=== PATIENT | female | born 1970 | race Asian ===

== ENCOUNTER 2018-08-31 09:53 | Emergency (ER) | payer OTHER ==
[2018-08-31 11:58] LABS: BILIRUBIN,URINE NEGATIVE (NEGATIVE); GLUCOSE, URINE (UA) NEGATIVE (NEGATIVE); KETONES,URINE (UA) NEGATIVE (NEGATIVE); LEUKOCYTE ESTERASE, URINE NEGATIVE (NEGATIVE); NITRITE,URINE NEGATIVE (NEGATIVE); OCCULT BLOOD,URINE MODERATE (NEGATIVE); PH,URINE 5.5 PH (5.0-7.5); PROTEIN,URINE NEGATIVE (NEGATIVE); UROBILINOGEN,URINE 0.2 (NORMAL) E.U./dL (NORMAL)
[2018-08-31 12:02] LABS: CLARITY,URINE CLEAR (CLEAR); HCG UR QUAL NEGATIVE
[2018-08-31 12:19] LABS: BACTERIA,URINE None Seen /HPF (None Seen); SQUAMOUS EPITHELIAL CELL,UR RARE Squamous (<= Few)
--- NOTE | 2018-08-31 12:50 | ED Physician Documentation ---
PD HPI ABD PAIN - Stated complaint Stated Complaint: BACK/SIDE PX - Chief complaint Chief Complaint: Abd Pain - History obtained from History obtained from: Patient, Family - History of Present Illness Timing - onset: Today (In 2013 she had bilateral nephrolithiasis requiring shockwave lithotripsy. Since then has not had any trouble with renal colic but over the last couple of days has had mild spasm-like pain of the left kidney and today was more constant but not associated with nausea. She declines pain medication and initial evaluation. She denies gross hematuria. No urinary complaints.) Review of Systems Constitutional: denies: Fever, Chills Cardiac: denies: Chest pain / pressure, Palpitations Respiratory: denies: Dyspnea, Cough GI: denies: Abdominal Pain, Nausea, Vomiting PD PAST MEDICAL HISTORY - Past Medical History Cardiovascular: Hypertension : Kidney stones - Past Surgical History Past Surgical History: Yes - Present Medications Home Medications: Ambulatory Orders Medication Instructions Recorded Confirmed Atenolol 50 mg PO DAILY 11/25/13 02/01/14 Tamsulosin [Flomax] 0.4 mg PO DAILY #14 capsule 08/31/18 - Allergies Allergies/Adverse Reactions: Allergies Allergy/AdvReac Type Severity Reaction Status Date / Time No Known Drug Allergies Allergy Verified 08/31/18 10:44 - Social History Does the pt smoke?: No Smoking Status: Never smoker Does the pt drink ETOH?: No Does the pt have substance abuse?: No - Immunizations Immunizations are current?: Yes - POLST Patient has POLST: No PD ED PE NORMAL - Vitals Vital signs reviewed: Yes - General General: Alert and oriented X 3, No acute distress - Respiratory Respiratory: No respiratory distress, Clear bilaterally - Abdomen Abdomen: Soft, Non tender - Extremities Extremities: No edema, No calf tenderness / cord - Neuro Neuro: Alert and oriented X 3, Normal speech Results - Vitals Vitals: Vital Signs - 24 hr 08/31/18 10:43 Temperature 36.4 C L Heart Rate 74 Respiratory 18 Rate Blood Pressure 149/79 H O2 Saturation 100 Oxygen O2 Source Room air - Labs Labs: Laboratory Tests 08/31/18 10:55 Urine Color YELLOW Urine Clarity CLEAR Urine pH 5.5 Ur Specific [place] 1.020 Urine Protein NEGATIVE Urine Glucose (UA) NEGATIVE Urine Ketones NEGATIVE Urine Occult Blood MODERATE H Urine Nitrite NEGATIVE Urine Bilirubin NEGATIVE Urine Urobilinogen 0.2 (NORMAL) Ur Leukocyte Esterase NEGATIVE Urine RBC 6-10 H Urine WBC 0-3 Ur Squamous Epith Cells RARE Squamous Urine Bacteria None Seen Ur Microscopic Review INDICATED Urine Culture Comments NOT INDICATED Urine HCG, Qual NEGATIVE - Rads (name of study) CT KUB Radiology: EMP read contemporaneously (4.5 mm proximal ureteral calculus, cholelithiasis and fibroid uterus) PD MEDICAL DECISION MAKING - ED course ED course: 47-year-old woman with remote history of renal colic presents with symptoms likely due to same and found to have a 4-1/2 mm proximal left ureteral calculus and other incidental findings were discussed with her. She declined presc ription pain medication and will follow up with her urologist. Given a copy of the CAT scan on CD to aid with this. Departure - Departure Disposition: 01 Home, Self Care Clinical Impression: Renal colic Condition: Good Record reviewed to determine appropriate education?: Yes Instructions: ED Stone Renal W Colic Prescriptions: Tamsulosin [Flomax] 0.4 mg PO DAILY #14 capsule Comments: Drink lots of fluids. You can take ibuprofen as needed for pain. Return for new or worsening symptoms. Follow-up with your urologist as discussed with the copy of the CAT scan. Forms: Activity restrictions
--- NOTE | 2018-08-31 13:43 | CT Report ---
Reason: L flank pain Procedure Date: 08/31/2018 Accession Number: [id number] / [id number] Procedure: CT - Abdomen/Pelvis WO CPT Code: FULL RESULT: EXAM: CT ABDOMEN AND PELVIS (CT KUB) EXAM DATE: 08/31/2018 01:19 PM. CLINICAL HISTORY: Left flank pain. COMPARISONS: ABDOMEN/PELVIS W/ 02/04/2014 1:50 PM. TECHNIQUE: Routine axial helical CT imaging was performed through the abdomen and pelvis without IV contrast. Reconstructions: Coronal and sagittal. In accordance with CT protocol optimization, one or more of the following dose reduction techniques were utilized for this exam: automated exposure control, adjustment of mA and/or KV based on patient size, or use of iterative reconstructive technique. FINDINGS: Lung Bases: Unremarkable. Right Kidney/Ureter: No stones, hydronephrosis, or hydroureter. No perinephric fat stranding. Left Kidney/Ureter: Proximal 4.5 mm left ureteral calculus with mild surrounding hydroureter and minimal upstream hydronephrosis without significant fat stranding around the kidney. Other Solid Organs: Noncontrast images of the solid organs are grossly unremarkable. Gallbladder/Bile Ducts: Cholelithiasis without evidence of cholecystitis. Peritoneal Cavity: No free fluid, free air or skyler adenopathy. Bowel is grossly unremarkable. Pelvic Organs: No bladder stones or wall thickening. Noncontrast images of the visualized pelvic organs are unremarkable. Vasculature: Unremarkable. Other: None. IMPRESSION: 4.5 mm proximal left ureteral calculus. Cholelithiasis without cholecystitis. RADIA The call report notification system was initiated by Dr. Clinton Killian at 01:42 PM on 08/31/2018. CRITICAL RESULT: The findings were discussed with Dr. Carr on 08/31/2018 at 1:45 PM.
[2018-08-31 14:00] VITALS: BP 138/74
== END 2018-08-31 13:57 | disposition home or self-care (01) ==
LOC: ED 09:53
DX: N20.0 Calculus of kidney (principal); Z87.442 Personal history of urinary calculi; I10 Essential (primary) hypertension
CPT/HCPCS: 74176; 81001; 81003; 81025; 87086; 99283; 99284

== ENCOUNTER 2021-01-03 08:13 | Outpatient (CLI) | payer OTHER ==
--- NOTE | 2021-01-03 11:14 | XRAY Report ---
PROCEDURE: Abdomen 1 View X-Ray INDICATIONS: KIDNEY STONES TECHNIQUE: 1 view of the abdomen were acquired. COMPARISON: None FINDINGS: Surgical changes and devices: None. Bowel: No pneumoperitoneum. The bowel gas pattern is normal. Soft tissues: No masses; visualized solid organ contours appear normal in size. No suspicious abdom inal calcifications. Bones: No suspicious bony abnormalities. IMPRESSION: No calcifications suspicious for nephroureterolithiasis.. Reviewed by: Reza Enriquez on 01/03/2021 11:13 AM PDT Approved by: Reza Enriquez on 01/03/2021 11:13 AM PDT Station ID: [id number]
== END 2021-01-03 08:14 | disposition home or self-care (01) ==
LOC: DI 08:13
PROVIDERS: ATTEND Urology
DX: N20.0 Calculus of kidney (principal)

== ENCOUNTER 2023-10-21 09:33 | Emergency (ER) | payer OTHER ==
[2023-10-21 10:50] LABS: BILIRUBIN,URINE NEGATIVE (NEGATIVE); GLUCOSE, URINE (UA) NEGATIVE (NEGATIVE); KETONES,URINE (UA) NEGATIVE (NEGATIVE); LEUKOCYTE ESTERASE, URINE SMALL (NEGATIVE); NITRITE,URINE POSITIVE (NEGATIVE); OCCULT BLOOD,URINE MODERATE (NEGATIVE); PROTEIN,URINE 30 mg/dL (NEGATIVE); UROBILINOGEN,URINE 0.2 (NORMAL) E.U./dL (NORMAL)
[2023-10-21 10:53] LABS: CLARITY,URINE SL. CLOUDY (CLEAR); HCG UR QUAL NEGATIVE
[2023-10-21 10:57] LABS: BACTERIA,URINE Few /HPF (None Seen); SQUAMOUS EPITHELIAL CELL,UR MOD Squamous (<= Few); WBC,URINE >25 /HPF (0-5)
[2023-10-21] MEDS: SODIUM CHLORIDE 0.9% 1,000 ML IV STA (10:57)
[2023-10-21] MEDS: KETOROLAC 15 MG/ML VIAL IVP STA (11:00)
[2023-10-21 11:06] LABS: BASOPHILS % (AUTO) 0.1 %; HCT - HEMATOCRIT 43.3 % (37.0-47.0); HGB - HEMOGLOBIN 14.2 g/dL (12.0-16.0); LYMPHOCYTES # (AUTO) 0.6 10^3/uL (1.5-3.5); MEAN CORPUSCULAR HEMOGLOBIN 30.3 pg (27.0-31.0); MEAN CORPUSCULAR HGB CONC 32.8 g/dL (32.0-36.0); MEAN CORPUSCULAR VOLUME 92.5 fL (81.0-99.0); MEAN PLATELET VOLUME 9.1 fL (7.9-10.8); MONOCYTES # (AUTO) 0.6 10^3/uL (0.0-1.0); MONOCYTES % (AUTO) 7.2 %; NEUTROPHILS # (AUTO) 7.5 10^3/uL (1.5-6.6); NEUTROPHILS % (AUTO) 85.4 %; PLT - PLATELET COUNT 205 10^3/uL (130-450); RED BLOOD COUNT 4.68 10^6/uL (4.20-5.40); RED CELL DISTRIBUTION WIDTH 12.6 % (12.0-15.0); WHITE BLOOD COUNT 8.8 x10^3/uL (4.8-10.8)
[2023-10-21 11:22] LABS: ALBUMIN 4.2 g/dL (3.2-5.5); ALBUMIN/GLOBULIN RATIO 1.2 (1.0-2.2); BILIRUBIN,TOTAL 0.7 mg/dL (0.2-1.0); CALCIUM 9.6 mg/dL (8.5-10.3); CREATININE 0.6 mg/dL (0.6-1.3); POTASSIUM 3.8 mmol/L (3.5-4.5); TOTAL PROTEIN 7.6 g/dL (6.4-8.9)
[2023-10-21] MEDS: cefTRIAXone 1 GM in SODIUM CHLORIDE 0.9% MINIBAG 100 ML IV STA (11:22)
[2023-10-21 12:00] LABS: B. PARAPERTUSSIS- RESP PCR PAN NOT DETECTED; B. PERTUSSIS- RESP PCR PANEL NOT DETECTED; C. PNEUMONIAE- RESP PCR PANEL NOT DETECTED; CORONAVIRUS 229E-RESP PCR NOT DETECTED; CORONAVIRUS HKU1-RESP PCR NOT DETECTED; CORONAVIRUS NL63-RESP PCR NOT DETECTED; CORONAVIRUS OC43-RESP PCR NOT DETECTED; HUMAN METAPNEUMOVIRUS NOT DETECTED; INFLUENZA A- RESP PCR PANEL NOT DETECTED; INFLUENZA B - RESP PCR PANEL NOT DETECTED; M. PNEUMONIAE- RESP PCR PANEL NOT DETECTED; PARAINFLUENZA VIRUS 1 NOT DETECTED; PARAINFLUENZA VIRUS 2 NOT DETECTED; PARAINFLUENZA VIRUS 3 NOT DETECTED; PARAINFLUENZA VIRUS 4 NOT DETECTED; RHINOVIRUS/ENTEROVIRUS NOT DETECTED; RSV- RESP PCR PANEL NOT DETECTED; SARS-CoV-2 -RESP PCR PANEL NOT DETECTED
--- NOTE | 2023-10-21 12:23 | ED Physician Documentation ---
PD HPI ABD PAIN - Stated complaint Stated Complaint: BACK PX,ABD PX,FEVER - Chief complaint Chief Complaint: Abd Pain - History obtained from History obtained from: Patient - Additional information Additional information: Patient is a 52-year-old female with no significant past medical history presenting for evaluation of lower abdominal and back pain starting on Friday. Friday she reported developing fevers. She last used acetaminophen around 130 this morning. She does report some heavy feeling with urination. She does work at the [employer] and has reported a recent cough. No sore throat. No chest pain, trouble breathing.No vomiting or diarrhea. Review of Systems Constitutional: reports: Fever Cardiac: denies: Chest pain / pressure Respiratory: denies: Dyspnea GI: reports: Abdominal Pain. 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: No Does the pt have substance abuse?: No - Immunizations Immunizations are current?: Yes - POLST Patient has POLST: No PD ED PE NORMAL - General General: Alert and oriented X 3, No acute distress, Well developed/nourished - HEENT HEENT: Atraumatic - Neck Neck: Supple, no meningeal sign - Cardiac Cardiac: RRR, Strong equal pulses - Respiratory Respiratory: No respiratory distress, Clear bilaterally - Abdomen Abdomen: Normal bowel sounds, Soft, Non tender, Non distended - Back Back: No CVA TTP - Derm Derm: Warm and dry - Neuro Neuro: Normal speech Results - Vitals Vitals: Vital Signs - 24 hr 10/21/23 10/21/23 10/21/23 09:48 11:53 12:54 Temperature 38.3 C H Heart Rate 100 89 82 Respiratory 15 18 18 Rate Blood Pressure 172/79 H 136/86 H 130/82 H O2 Saturation 100 96 98 Oxygen O2 Source Room air - Labs Labs: Laboratory Tests 10/21/23 10/21/23 10/21/23 10:42 11:00 11:00 WBC 8.8 RBC 4.68 Hgb 14.2 Hct 43.3 MCV 92.5 MCH 30.3 MCHC 32.8 RDW 12.6 Plt Count 205 MPV 9.1 Neut # (Auto) 7.5 H Lymph # (Auto) 0.6 L [place] # (Auto) 0.6 Eos # (Auto) 0.0 Baso # (Auto) 0.0 Absolute Nucleated RBC 0.00 Nucleated RBC % 0.0 Sodium 133 L Potassium 3.8 Chloride 101 Carbon Dioxide 24 Anion Gap 8.0 BUN 11 Creatinine 0.6 Estimated GFR (MDRD) 105 Glucose 122 H Calcium 9.6 Total Bilirubin 0.7 AST 27 ALT 31 Alkaline Phosphatase 52 Total Protein 7.6 Albumin 4.2 Globulin 3.4 Albumin/Globulin Ratio 1.2 Lipase 17 Urine Color YELLOW Urine Clarity SL. CLOUDY Urine pH 6.0 Ur Specific [place] 1.025 Urine Protein 30 H Urine Glucose (UA) NEGATIVE Urine Ketones NEGATIVE Urine Occult Blood MODERATE H Urine Nitrite POSITIVE H Urine Bilirubin NEGATIVE Urine Urobilinogen 0.2 (NORMAL) Ur Leukocyte Esterase SMALL H Urine RBC 6-10 H Urine WBC >25 H Ur Squamous Epith Cells MOD Squamous H Urine Bacteria Few Ur Microscopic Review INDICATED Urine Culture Comments NOT INDICATED Urine HCG, Qual NEGATIVE Nasal Adenovirus (PCR) Nasal B. parapertussis DNA (PCR) Nasal Coronavir 229E PCR Nasal Coronavir HKU1 PCR Nasal Coronavir NL63 PCR Nasal Coronavir OC43 PCR Nasal Enterovir/Rhinovir PCR Nasal Influenza B PCR Nasal Influenza A PCR Nasal Parainfluen 1 PCR Nasal Parainfluen 2 PCR Nasal Parainfluen 3 PCR Nasal Parainfluen 4 PCR Nasal RSV (PCR) Nasal B.pertussis DNA PCR Nasal C.pneumoniae (PCR) Luke Human Metapneumo PCR Nasal M.pneumoniae (PCR) Nasal SARS-CoV-2 (PCR) 10/21/23 11:00 WBC RBC Hgb Hct MCV MCH MCHC RDW Plt Count MPV Neut # (Auto) Lymph # (Auto) [place] # (Auto) Eos # (Auto) Baso # (Auto) Absolute Nucleated RBC Nucleated RBC % Sodium Potassium Chloride Carbon Dioxide Anion Gap BUN Creatinine Estimated GFR (MDRD) Glucose Calcium Total Bilirubin AST ALT Alkaline Phosphatase Total Protein Albumin Globulin Albumin/Globulin Ratio Lipase Urine Color Urine Clarity Urine pH Ur Specific [place] Urine Protein Urine Glucose (UA) Urine Ketones Urine Occult Blood Urine Nitrite Urine Bilirubin Urine Urobilinogen Ur Leukocyte Esterase Urine RBC Urine WBC Ur Squamous Epith Cells Urine Bacteria Ur Microscopic Review Urine Culture Comments Urine HCG, Qual Nasal Adenovirus (PCR) NOT DETECTED Nasal B. parapertussis DNA (PCR) NOT DETECTED Nasal Coronavir 229E PCR NOT DETECTED Nasal Coronavir HKU1 PCR NOT DETECTED Nasal Coronavir NL63 PCR NOT DETECTED Nasal Coronavir OC43 PCR NOT DETECTED Nasal Enterovir/Rhinovir PCR NOT DETECTED Nasal Influenza B PCR NOT DETECTED Nasal Influenza A PCR NOT DETECTED Nasal Parainfluen 1 PCR NOT DETECTED Nasal Parainfluen 2 PCR NOT DETECTED Nasal Parainfluen 3 PCR NOT DETECTED Nasal Parainfluen 4 PCR NOT DETECTED Nasal RSV (PCR) NOT DETECTED Nasal B.pertussis DNA PCR NOT DETECTED Nasal C.pneumoniae (PCR) NOT DETECTED Luke Human Metapneumo PCR NOT DETECTED Nasal M.pneumoniae (PCR) NOT DETECTED Nasal SARS-CoV-2 (PCR) NOT DETECTED PD Medical Decision Making - ED course Complexity details: reviewed results, re-evaluated patient, d/w patient ED course: Patient is a 52-year-old female presenting for evaluation of fever, generalized abdominal discomfort. Has low-grade fever here. Otherwise vital signs are stable. CBC, chemistry, urinalysis reviewed. Urine is concerning for infection. Patient received IV fluids, Toradol and is feeling better. Respiratory swab is negative. She was started on Rocephin. Repeat abdominal exam remains benign. Will start on antibiotics for pyelonephritis. No symptoms to suggest kidney stone.Patient counseled on treatment plan as well as concerning symptoms to return for. 1222 - Patient is feeling better, no abdominal pain. Departure - Departure Disposition: 01 Home, Self Care Clinical Impression: Pyelonephritis Condition: Stable Instructions: ED Kidney Infec Female Prescriptions: Cefpodoxime Proxetil [Vantin] 100 mg PO Q12H #14 tablet Comments: Your testing today shows that you have a kidney infection. I sent a prescription for antibiotics to [facility] in [place]. Please make sure you complete the course of the antibiotic. Your respiratory swab is negative for tested viruses such as COVID, flu and RSV. Continue with acetaminophen or ibuprofen as needed for fever or pain. Return to the ER if you develop any worsening symptoms such as increased pain. Forms: PCP List, Activity restrictions Discharge Date/Time: 10/21/23 12:56
[2023-10-21 12:59] VITALS: BP 130/82; O2SAT 98
== END 2023-10-21 12:56 | disposition home or self-care (01) ==
LOC: ED 09:33
DX: N12 Tubulo-interstitial nephritis, not specified as acute or chronic (principal); I10 Essential (primary) hypertension
CPT/HCPCS: 36415; 80053; 81001; 81003; 81025; 83690; 85025; 87086; 87633; 96365; 96375; 99283

== ENCOUNTER 2023-10-22 18:32 | Outpatient (CLI) | payer OTHER | END 2023-10-22 23:59 | disposition critical access hospital (66) | LOC: EMS 18:32 | DX: R11.0 Nausea (principal); R50.9 Fever, unspecified; R00.0 Tachycardia, unspecified; R42 Dizziness and giddiness; R06.4 Hyperventilation; R10.2 Pelvic and perineal pain | CPT/HCPCS: A0425; A0427 ==

== ENCOUNTER 2023-10-22 18:51 | Inpatient (IN) | payer OTHER ==
[2023-10-22] MEDS: SODIUM CHLORIDE 0.9% 1,000 ML IV STA (19:27)
--- NOTE | 2023-10-22 19:28 | ED Physician Documentation ---
History of Present Illness - Stated complaint Stated Complaint: NAUSEA, CHILLS, FEVER - Chief complaint Chief Complaint: General - History obtained from History obtained from: Patient - Additonal information Additional information: Patient is a 52-year-old female presenting for evaluation of ongoing fever. Patient was seen yesterday with fever and reported heaviness with urination. Labs were reassuring but urine suggested infection and she was given a dose of IV Rocephin. She is feeling better after Toradol and fluids with benign abdominal exam so imaging was deferred. She has been taking her antibiotic and has been using acetaminophen every 6 hours, 1000 mg. However she continues to have fevers and is concerned about that. Reports having some discomfort now in the left flank.No cough or congestion. No vomiting but does have some nausea. Review of Systems Constitutional: reports: Fever, Chills Cardiac: denies: Chest pain / pressure Respiratory: denies: Dyspnea GI: reports: Nausea. 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 : Kidney stones HEENT: None Psych: None Musculoskeletal: None Derm: None - Past Surgical History Past Surgical History: Yes - Present Medications Home Medications: Ambulatory Orders Medication Instructions Recorded Confirmed atenoloL [Atenolol] 50 mg PO DAILY 11/25/13 10/22/23 Cefpodoxime Proxetil [Vantin] 100 mg PO Q12H #14 tablet 10/21/23 10/22/23 - Allergies Allergies/Adverse Reactions: Allergies Allergy/AdvReac Type Severity Reaction Status Date / Time lisinopril Allergy Respiratory Verified 10/22/23 18:55 - Social History Does the pt smoke?: No Smoking Status: Never smoker Does the pt drink ETOH?: No Does the pt have substance abuse?: No - Immunizations Immunizations are current?: Yes - POLST Patient has POLST: No PD ED PE NORMAL - General General: Alert and oriented X 3, No acute distress, Well developed/nourished - HEENT HEENT: Atraumatic, Moist mucous membranes, Pharynx benign - Neck Neck: Supple, no meningeal sign - Cardiac Cardiac: Strong equal pulses, Other (Tachycardic, regular rhythm) - Respiratory Respiratory: No respiratory distress, Clear bilaterally - Abdomen Abdomen: Normal bowel sounds, Soft, Non tender, Non distended - Back Back: Other (Left CVA tenderness) - Derm Derm: Warm and dry - Neuro Neuro: Normal speech Results - Vitals Vitals: Vital Signs - 24 hr 10/22/23 10/22/23 10/22/23 18:55 21:46 23:35 Temperature 38.6 C H 37.1 C Heart Rate 120 H 109 H 105 H Respiratory 20 18 20 Rate Blood Pressure 150/83 H 145/69 H 113/56 L O2 Saturation 98 99 96 10/23/23 10/23/23 10/23/23 00:47 01:44 03:00 Temperature 36.9 C 36.8 C Heart Rate 97 92 84 Respiratory 20 20 22 Rate Blood Pressure 96/52 L 110/63 124/70 O2 Saturation 95 96 97 10/23/23 10/23/23 05:00 08:02 Temperature 36.8 C 36.6 C Heart Rate 77 86 Respiratory 20 25 H Rate Blood Pressure 143/77 H 177/83 H O2 Saturation 14 L 97 Oxygen O2 Source Room air - Labs Labs: Microbiology 10/22/23 19:57 Blood Culture - Preliminary Blood Blood Culture (PCR) - Final 10/22/23 19:57 Blood Culture - Preliminary Blood Laboratory Tests 10/22/23 10/22/23 10/22/23 19:15 19:57 19:57 WBC 2.5 L RBC 4.39 Hgb 13.2 Hct 41.0 MCV 93.4 MCH 30.1 MCHC 32.2 RDW 12.7 Plt Count 146 MPV 8.8 Neut # (Auto) 2.3 Lymph # (Auto) 0.2 L [place] # (Auto) 0.0 Eos # (Auto) 0.0 Baso # (Auto) 0.0 Absolute Nucleated RBC 0.00 Band Neuts % (Manual) Not Reportable Abnorm Lymph % (Manual) Not Reportable Nucleated RBC % 0.0 Neutrophils # (Manual) Not Reportable Lymphocytes # (Manual) Not Reportable Monocytes # (Manual) Not Reportable Eosinophils # (Manual) Not Reportable Basophils # (Manual) Not Reportable Differential Comment MANUAL=AUTO DIFF Manual Slide Review Indicated Platelet Estimate NORMAL (130-450,000) Platelet Morphology NORMAL APPEARANCE RBC Morph Micro Appear NORMAL APPEARANCE Sodium 136 Potassium 3.4 L Chloride 106 Carbon Dioxide 22 Anion Gap 8.0 BUN 13 Creatinine 0.7 Estimated GFR (MDRD) 88 L Glucose 179 H Lactic Acid Calcium 9.5 Total Bilirubin 0.7 AST 34 ALT 49 Alkaline Phosphatase 73 Total Protein 6.8 Albumin 3.8 Globulin 3.0 Albumin/Globulin Ratio 1.3 Lipase 21 Urine Color DARK YELLOW Urine Clarity CLEAR Urine pH 6.0 Ur Specific [place] 1.025 Urine Protein 100 H Urine Glucose (UA) NEGATIVE Urine Ketones 15 H Urine Occult Blood SMALL H Urine Nitrite NEGATIVE Urine Bilirubin NEGATIVE Urine Urobilinogen 0.2 (NORMAL) Ur Leukocyte Esterase NEGATIVE Urine RBC 11-25 H Urine WBC 11-25 H Urine WBC Clumps PRESENT Ur Squamous Epith Cells FEW Squamous Urine Bacteria Few Ur Microscopic Review INDICATED Urine Culture Comments INDICATED 10/22/23 10/23/23 10/23/23 19:57 05:19 05:19 WBC 10.6 RBC 4.06 L Hgb 12.5 Hct 38.2 MCV 94.1 MCH 30.8 MCHC 32.7 RDW 13.1 Plt Count 147 MPV 9.1 Neut # (Auto) 9.3 H Lymph # (Auto) 0.7 L [place] # (Auto) 0.6 Eos # (Auto) 0.0 Baso # (Auto) 0.0 Absolute Nucleated RBC 0.00 Band Neuts % (Manual) Abnorm Lymph % (Manual) Nucleated RBC % 0.0 Neutrophils # (Manual) Lymphocytes # (Manual) Monocytes # (Manual) Eosinophils # (Manual) Basophils # (Manual) Differential Comment Manual Slide Review Platelet Estimate Platelet Morphology RBC Morph Micro Appear Sodium 139 Potassium 4.1 Chloride 108 Carbon Dioxide 23 Anion Gap 8.0 BUN 11 Creatinine 0.7 Estimated GFR (MDRD) 88 L Glucose 133 H Lactic Acid 1.8 Calcium 8.9 Total Bilirubin AST ALT Alkaline Phosphatase Total Protein Albumin Globulin Albumin/Globulin Ratio Lipase Urine Color Urine Clarity Urine pH Ur Specific [place] Urine Protein Urine Glucose (UA) Urine Ketones Urine Occult Blood Urine Nitrite Urine Bilirubin Urine Urobilinogen Ur Leukocyte Esterase Urine RBC Urine WBC Urine WBC Clumps Ur Squamous Epith Cells Urine Bacteria Ur Microscopic Review Urine Culture Comments PD Medical Decision Making - ED course Complexity details: reviewed results, re-evaluated patient, d/w patient ED course: Patient is a 52-year-old female presenting for reevaluation with a fever and pain in the back. Patient was seen yesterday with similar symptoms and diagnosed with pyelonephritis. As she was feeling better with IV fluids and Toradol imaging was deferred. Patient arrives febrile and tachycardic. She states that the fever is not breaking despite use of acetaminophen every 6 hours of the 1000 mg. She reports not feeling any better despite being on antibiotics. She has nausea but no vomiting. CBC, chemistry, urinalysis were repeated. I also did add on a urine culture from yesterday's urine after speaking to the lab as it did not automatically reflex to this to the presence of squamous epithelial cells. Labs are significant for leukopenia of 2.5. CT scan of the abdomen and pelvis was obtained. There are findings of a right sided pyelonephritis. No signs of hydronephrosis or obstructive uropathy. Patient also does have a large cystic mass on the right ovary. She does not have any lower abdominal tenderness. An ultrasound was also obtained demonstrating a large right ovarian cyst but no signs of torsion. Patient was advised on this finding and is aware she needs follow-up with gynecology.Patient is still tachycardic despite treatment of fever. She has been continued on Rocephin. She has not felt better despite being on antibiotics for the past 24 hours. Therefore feel it would be reasonable to observe her in the hospital for pyelonephritis with continued IV antibiotics. Unfortunately there are no admission beds available so patient remains in the emergency department overnight. 0555 - Patient's blood cultures are positive for gram-negative Bacteria. Patient is aware. Plan remains the same that she should be hospitalized once inpatient beds are available. Pt signed out at shift change awaiting bed availability for admission. Departure - Departure Disposition: [facility] DC/Xfer Clinical Impression: Pyelonephritis, Right ovarian cyst, Gram-negative bacteremia Condition: Good Forms: PCP List
[2023-10-22] MEDS ORDERED: cefTRIAXone 1 GM VIAL ONE (19:36)
[2023-10-22] MEDS: ONDANSETRON 4 MG/2 ML VIAL IVP STA (19:38)
[2023-10-22] MEDS: cefTRIAXone 1 GM in SODIUM CHLORIDE 0.9% MINIBAG 100 ML IV STA (19:38)
[2023-10-22] MEDS: KETOROLAC 15 MG/ML VIAL IVP STA (19:38)
[2023-10-22] MEDS ORDERED: iohexoL-300 100 ML VIAL ONE (19:45)
[2023-10-22 20:05] LABS: BASOPHILS % (AUTO) 0.4 %; HGB - HEMOGLOBIN 13.2 g/dL (12.0-16.0); LYMPHOCYTES # (AUTO) 0.2 10^3/uL (1.5-3.5); LYMPHOCYTES % (AUTO) 7.5 %; MEAN CORPUSCULAR HEMOGLOBIN 30.1 pg (27.0-31.0); MEAN CORPUSCULAR HGB CONC 32.2 g/dL (32.0-36.0); MEAN CORPUSCULAR VOLUME 93.4 fL (81.0-99.0); MEAN PLATELET VOLUME 8.8 fL (7.9-10.8); MONOCYTES % (AUTO) 1.6 %; NEUTROPHILS # (AUTO) 2.3 10^3/uL (1.5-6.6); NEUTROPHILS % (AUTO) 90.1 %; PLT - PLATELET COUNT 146 10^3/uL (130-450); RED BLOOD COUNT 4.39 10^6/uL (4.20-5.40); RED CELL DISTRIBUTION WIDTH 12.7 % (12.0-15.0); WHITE BLOOD COUNT 2.5 x10^3/uL (4.8-10.8)
[2023-10-22 20:10] LABS: BILIRUBIN,URINE NEGATIVE (NEGATIVE); GLUCOSE, URINE (UA) NEGATIVE (NEGATIVE); KETONES,URINE (UA) 15 mg/dL (NEGATIVE); LEUKOCYTE ESTERASE, URINE NEGATIVE (NEGATIVE); NITRITE,URINE NEGATIVE (NEGATIVE); OCCULT BLOOD,URINE SMALL (NEGATIVE); PROTEIN,URINE 100 mg/dL (NEGATIVE); UROBILINOGEN,URINE 0.2 (NORMAL) E.U./dL (NORMAL)
[2023-10-22 20:22] LABS: ALBUMIN 3.8 g/dL (3.2-5.5); ALBUMIN/GLOBULIN RATIO 1.3 (1.0-2.2); BILIRUBIN,TOTAL 0.7 mg/dL (0.2-1.0); CALCIUM 9.5 mg/dL (8.5-10.3); CREATININE 0.7 mg/dL (0.6-1.3); POTASSIUM 3.4 mmol/L (3.5-4.5); TOTAL PROTEIN 6.8 g/dL (6.4-8.9)
[2023-10-22 20:25] LABS: SLIDE REVIEW? Indicated
--- NOTE | 2023-10-22 20:29 | CT Report ---
PROCEDURE: Abdomen/Pelvis W INDICATIONS: L flank pain/fever CONTRAST: 100ml [id number] TECHNIQUE: After the administration of intravenous contrast, a CT scan of the abdomen and pelvis was performed. Images were recorded and evaluated at appropriate window settings. Reformats: coronal and sagittal. F or radiation dose reduction, the following was used: automated exposure control, adjustment of mA and /or kV according to patient size. COMPARISON: CT abdomen pelvis 08/31/2018 FINDINGS: Image quality: Diagnostic. Lower chest: Small hiatal hernia. No pleural effusion. Liver: No solid mass. Gallbladder: No radiopaque stones or wall thickening. Biliary tree: No intrahepatic or extrahepatic dilation, accounting for age. Spleen: No splenomegaly. Pancreas: No pancreatic ductal dilation. Adrenals: No adrenal nodule. Kidneys and ureters: Scattered areas of hypodensity in the right kidney, (). This could be seen i n the setting of pyelonephritis. There is stranding near the right kidney. No hydronephrosis. No defi nite solid renal mass. Stomach, bowel and peritoneum: No gastric or small bowel dilation. No abnormal wall thickening. No pa thologic free fluid. Normal appendix. Lymph nodes: No central or retroperitoneal adenopathy. Vessels: No infrarenal aortic aneurysm. Patent portal vein. PELVIS Reproductive organs: Multiple small uterine fibroids. Uterus is anteverted. Large right ovarian cyst measuring 8.4 x 6.7 x 6.5 cm, ( and ). Small daughter cysts or thin septations. Bladder: Mostly decompressed. No stone. Pelvic lymph nodes: No pelvic adenopathy by size criteria. Bones: No aggressive osseous abnormality. Other: No significant ventral or inguinal hernia. IMPRESSION: 1. Scattered areas of hypodensity in the right kidney. Right perinephric stranding. Findings concerni ng for pyelonephritis. 2. No hydronephrosis. 3. Large right ovarian cyst measuring 8.4 cm. Recommend further evaluation with pelvic ultrasound or MRI. Recommend gynecological consultation. Results were communicated to Dr. Jesus Stanton at 10/22/2023 8:26 PM PDT. Reviewed by: Aiden Stauffer MD on 10/22/2023 8:28 PM PDT Approved by: Aiden Stauffer MD on 10/22/2023 8:28 PM PDT Station ID: [id number]
[2023-10-22 20:33] LABS: CLARITY,URINE CLEAR (CLEAR)
[2023-10-22 20:39] LABS: WBC CLUMPS,URINE PRESENT
[2023-10-22 20:40] LABS: BACTERIA,URINE Few /HPF (None Seen); SQUAMOUS EPITHELIAL CELL,UR FEW Squamous (<= Few)
[2023-10-22] MEDS: iohexoL-300 100 ML VIAL IVP ONE (20:41)
[2023-10-22 20:53] LABS: DIFFERENTIAL COMMENT MANUAL=AUTO DIFF; PLATELET ESTIMATE, MANUAL NORMAL (130-450,000) (NORMAL); PLATELET MORPHOLOGY NORMAL APPEARANCE (NORMAL); RBC MORPHOLOGY (MULTIPLE) NORMAL APPEARANCE (NORMAL)
[2023-10-22] MEDS: POTASSIUM BICARB 25 MEQ TABLET PO ONE (21:28)
[2023-10-22] MEDS ORDERED: ONDANSETRON 4 MG/2 ML VIAL IVP PRN (22:42)
[2023-10-22] MEDS: ACETAMINOPHEN 500 MG TABLET PO PRN (23:40)
--- NOTE | 2023-10-23 00:35 | Ultrasound Report ---
PROCEDURE: Pelvic w/Transvag+Doppler Comp INDICATIONS: R ovarian cyst/mass TECHNIQUE: Real-time scanning was performed of the pelvic organs, with image documentation. Additional endovagi nal scanning was necessary due to incomplete visualization of the adnexal and endometrial structures by transabdominal scanning. Doppler interrogation was performed of the ovaries bilaterally. COMPARISON: CT abdomen pelvis 10/22/2023. FINDINGS: Uterus: Uterus is anteverted and normal in size at 8.6 x 5.8 x 3.5 cm. The myometrium is homogeneou s. The endometrium measures 5 mm in combined thickness. Several uterine fibroids. For example: Mid anterior subserosal fibroid measuring 2.5 cm. Mid posterior intramural fibroid measuring 1.3 cm. Righ t anterior intramural fibroid measuring 1.9 cm. Several calcified fibroids. Ovaries: The right ovary measures 8.6 x 8.1 x 5.8 cm, with a calculated ovarian volume of 211 cc. T he left ovary measures 1.7 x 1.3 x 1.4 cm, with a calculated ovarian volume of 2 cc. Appropriate blo od flow to the ovaries with Doppler interrogation. No findings to suggest ovarian torsion. Less than 12 follicles can be seen in each ovary. Large anechoic right ovarian cyst measuring is 7.4 x 6 x 5.4 cm. There is internal debris. No internal vascularity. (Of note a right ovarian cyst was seen in 201 9 measuring 2.3 cm). Other: No pathologic free abdominal or pelvic fluid. IMPRESSION: 1. Large right anechoic ovarian cyst with internal debris measuring 7.4 cm. No internal vascularity. Gynecological consultation is recommended given its large size. Pelvic MRI may be helpful for further evaluation. 2. Multiple uterine fibroids. Reviewed by: Aiden Stauffer MD on 10/23/2023 12:33 AM PDT Approved by: Aiden Stauffer MD on 10/23/2023 12:33 AM PDT Station ID: [id number]
[2023-10-23] MEDS: SODIUM CHLORIDE 0.9% 1,000 ML IV STA (01:38)
[2023-10-23 05:23] LABS: BASOPHILS % (AUTO) 0.3 %; HCT - HEMATOCRIT 38.2 % (37.0-47.0); HGB - HEMOGLOBIN 12.5 g/dL (12.0-16.0); LYMPHOCYTES # (AUTO) 0.7 10^3/uL (1.5-3.5); LYMPHOCYTES % (AUTO) 6.2 %; MEAN CORPUSCULAR HEMOGLOBIN 30.8 pg (27.0-31.0); MEAN CORPUSCULAR HGB CONC 32.7 g/dL (32.0-36.0); MEAN CORPUSCULAR VOLUME 94.1 fL (81.0-99.0); MEAN PLATELET VOLUME 9.1 fL (7.9-10.8); MONOCYTES # (AUTO) 0.6 10^3/uL (0.0-1.0); MONOCYTES % (AUTO) 5.5 %; NEUTROPHILS # (AUTO) 9.3 10^3/uL (1.5-6.6); NEUTROPHILS % (AUTO) 87.2 %; PLT - PLATELET COUNT 147 10^3/uL (130-450); RED BLOOD COUNT 4.06 10^6/uL (4.20-5.40); RED CELL DISTRIBUTION WIDTH 13.1 % (12.0-15.0); WHITE BLOOD COUNT 10.6 x10^3/uL (4.8-10.8)
[2023-10-23 05:41] LABS: CALCIUM 8.9 mg/dL (8.5-10.3); CREATININE 0.7 mg/dL (0.6-1.3); POTASSIUM 4.1 mmol/L (3.5-4.5)
[2023-10-23] MEDS: PANTOPRAZOLE 40 MG TABLET PO SCH (07:52)
[2023-10-23] MEDS: cefTRIAXone 1 GM in SODIUM CHLORIDE 0.9% MINIBAG 100 ML IV SCH (08:01)
--- NOTE | 2023-10-23 09:18 | PHARMACY PROGRESS NOTE ---
- Best Possible Medication History Admit Date and Time: Processed by: Pharmacy Medication History completed: Yes Patient Interview: Completed Secondary Source(s): Insurance records As the person ultimately responsible for medication therapy, providers are able to order a medication from an existing home medication list in [facility] via the "Reconcile Routine" prior to Confirmation of that medication by home support worker. Such practice is discouraged except when the physician, in their clinical judgment, deems that a medical need exists for a medication without regard to previous use.
[2023-10-23] MEDS: MEROPENEM 1 GM in SODIUM CHLORIDE 0.9% MINIBAG 100 ML IV SCH (11:19)
[2023-10-23] MEDS ORDERED: HYDROcod/ACETAM 5/325 MG TABLET PO PRN (14:11)
[2023-10-23] MEDS ORDERED: ONDANSETRON ODT 4 MG TABLET TL PRN (14:11)
[2023-10-23] MEDS ORDERED: SODIUM CHLORIDE FLUSH 0.9% 10 ML SYRINGE IVP PRN (14:11)
[2023-10-23] MEDS ORDERED: ONDANSETRON 4 MG/2 ML VIAL IVP PRN (14:11)
--- NOTE | 2023-10-23 14:17 | HISTORY & PHYSICAL EXAMINATION ---
Chief Complaint - Chief Complaint Chief Complaint: Fever, chills, discomfort with urination History of Present Illness - Admitted From Admitted From:: ED, came from home - History Obtained From Records Reviewed: Yes History obtained from: ED provider, patietn and Exam Limitations: No - History of Present Illness HPI Comment/Other: A 52-year-old female general healthy presented to ED with cc of ongoing fever, chill and urinary discomfort. Patient came to ED on 10/21/2023 with fever and reported heaviness with urination. Labs were reassuring but urine suggested infection and she was given a dose of IV Rocephin. She is feeling better after Toradol and fluids with benign abdominal exam so imaging was deferred. She has been taking her antibiotic and has been using acetaminophen every 6 hours, 1000 mg. However she continues to have fevers and having some discomfort in the left flank. No cough or congestion. No vomiting but does have some nausea. In the ER, patient had fever T38.6, HR 120, RR 20, Bp 150/83, on room air. Lab significant with WBC 2.5, platelet 146, UA negative nitrite, negative LE. right kidney scatter areas of hypodensity, concerning for pyelonephritis. Large right ovarian cysts 8.4cm. Urine culture positive with E coli. Blood culture collected on 10/22/2023 preliminary report ESBL. Patient was started on ceftrioxne initially, when blood culture preliminary report available, ED provider switched antibiotic to merepeniem History - Past Medical History Cardiovascular: reports: Hypertension Respiratory: reports: None Neuro: reports: None Endocrine/Autoimmune: reports: None GI: reports: None MENTAL HEALTH DIRECTOR: reports: None : reports: Kidney stones HEENT: reports: None Psych: reports: None Musculoskeletal: reports: None Derm: reports: None MRSA Hx?: No - POLST Patient has POLST: No Meds/Allgy - Home Medications Home Medications: Ambulatory Orders Medication Instructions Recorded Confirmed atenoloL [Atenolol] 50 mg PO DAILY 11/25/13 10/22/23 - Allergies Allergies/Adverse Reactions: Allergies Allergy/AdvReac Type Severity Reaction Status Date / Time lisinopril Allergy Respiratory Verified 10/22/23 18:55 Review of Systems - Constitutional Constitutional: reports: Fatigue, Fever, Chills, Malaise - Eyes Eyes: denies: Vision loss, Dipolpia - Ears, Nose & Throat Ears, Nose & Throat: denies: Sore throat, Hoarseness - Cardiovascular Cariovascular: denies: Irregular heart rate, Palpitations, Chest pain - Respiratory Respiratory: denies: Cough, Sputum production, Wheezing - Gastrointestinal Gastrointestinal: reports: Nausea, Poor appetite. denies: Abdominal distention, Constipation - Genitourinary Genitourinary: reports: Other (urination discomfort) - Musculoskeletal Musculoskeletal: denies: Muscle aches, Joint pain - Integumentary Integumentary: denies: Rash, Lesions - Neurological Neurological: reports: General weakness. 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 negative: Guarding, Rebound Back: negative: CVA tenderness (R), CVA tenderness (L) Skin: positive: Color nml, Warm, Dry Extremities: positive: Non-tender, No pedal edema Neurologic/Psychiatric: positive: Oriented x3, CN's nml (2-12) Sepsis Event Note (H) - Evaluation Current Stage of Sepsis: Sepsis Possible source of Sepsis: positive: Genitourinary Conclusion/Plan - Problem List (1) Sepsis Conclusion/Plan: Febrile, tachycardia, Low WBC, meet SIRS criteria, she has positive blood culture, likely ESBL Source of infection: pyelonephritis -was given ceftrioxone initially, switched to meropenem -continue with antibiotic -iv fluid -prn symptom treatment for fever and nausea Qualifiers: Sepsis type: Escherichia coli Sepsis acute organ dysfunction status: without acute organ dysfunction Qualified Code(s): A41.51 - Sepsis due to Escherichia coli [E. coli] (2) Gram-negative bacteremia Conclusion/Plan: Blood culture preliminary report: ESBL await for full report (3) Right ovarian cyst Conclusion/Plan: large, 7-8cm outpatient MENTAL HEALTH DIRECTOR follow up (4) Pyelonephritis Conclusion/Plan: CT abdomen has evidence of right pyelonephritis -on antibiotic (5) HTN (hypertension) Conclusion/Plan: accelated Bp, 140/90, likely related to stress -resume home med: atolol - Lab Results Lab results reviewed: Yes Fish Bones: 10/23/23 05:19 10/23/23 05:19 - Diagnostic Imaging Results Diagnostic Imaging Results: positive: Final report reviewed - EKG Results EKG Comparison: No prior EKG
--- NOTE | 2023-10-23 14:32 | ED Physician Documentation ---
ED Addendum - Addendum Addendum: 10/23/23 14:30 The patient was signed out to me at change of shift, pending admission to the hospital for pyelonephritis and gram-negative bacteremia after having failed outpatient treatment for UTI. I did speak with Dr. Swift as I was informed that we had beds available and Dr. Swift, our on-call hospitalist did see and evaluate the patient. She stated she would admit the patient to the hospital as soon as a bed has become officially available after discharges from the floor. The patient is agreeable to this plan. The patient was stable though antibiotics were changed from Rocephin to meropenem, based on the preliminary identification of the bacteria in the patient's blood. Her white blood cell count has come up to 10 from 2. Her vital signs have been stable. Final impression 1. Gram-negative bacteremia 2. Pyelonephritis Disposition: Admit to medical service in serious but stable condition.
[2023-10-23] MEDS: ACETAMINOPHEN 325 MG TABLET PO PRN (14:56)
[2023-10-23] MEDS: SODIUM CHLORIDE FLUSH 0.9% 10 ML SYRINGE IVP SCH (16:44)
[2023-10-23] MEDS: SODIUM CHLORIDE 0.9% 1,000 ML IV SCH (16:44)
[2023-10-24 05:19] LABS: BASOPHILS % (AUTO) 0.4 %; EOSINOPHILS % (AUTO) 0.4 %; HCT - HEMATOCRIT 34.6 % (37.0-47.0); HGB - HEMOGLOBIN 11.2 g/dL (12.0-16.0); LYMPHOCYTES # (AUTO) 1.1 10^3/uL (1.5-3.5); MEAN CORPUSCULAR HEMOGLOBIN 30.4 pg (27.0-31.0); MEAN CORPUSCULAR HGB CONC 32.4 g/dL (32.0-36.0); MEAN PLATELET VOLUME 8.7 fL (7.9-10.8); MONOCYTES # (AUTO) 0.9 10^3/uL (0.0-1.0); MONOCYTES % (AUTO) 11.3 %; NEUTROPHILS # (AUTO) 5.6 10^3/uL (1.5-6.6); NEUTROPHILS % (AUTO) 72.9 %; PLT - PLATELET COUNT 158 10^3/uL (130-450); RED BLOOD COUNT 3.68 10^6/uL (4.20-5.40); RED CELL DISTRIBUTION WIDTH 13.1 % (12.0-15.0); WHITE BLOOD COUNT 7.6 x10^3/uL (4.8-10.8)
[2023-10-24 05:46] LABS: CALCIUM 8.5 mg/dL (8.5-10.3); CREATININE 0.6 mg/dL (0.6-1.3); POTASSIUM 3.4 mmol/L (3.5-4.5)
--- NOTE | 2023-10-24 07:53 | PROVIDER PROGRESS NOTE ---
Assessment/Plan - Problem List (1) Sepsis Qualifiers: Sepsis type: Escherichia coli Sepsis acute organ dysfunction status: without acute organ dysfunction Qualified Code(s): A41.51 - Sepsis due to Escherichia coli [E. coli] Assessment/Plan: Sepsis, resolved VSS, WBC normalized -continue with iv Meropenem (2) Gram-negative bacteremia Assessment/Plan: ESBL bacteremia -iv meropenem, total treatment course 7 days, can consider to switch to oral after 5 days iv antibiotic (3) Right ovarian cyst Assessment/Plan: chronic condition, follow up with CASH PROCESSOR as outpatient (4) Pyelonephritis Assessment/Plan: On Meropenem (5) HTN (hypertension) Qualifiers: Hypertension type: primary hypertension Qualified Code(s): I10 - Essential (primary) hypertension Assessment/Plan: Uncontrolled -Continue home atenolol -add amlodipin - Current Meds Current Meds: Current Medications Generic Name Dose Route Start Last Admin Trade Name Freq PRN Reason Stop Dose Admin Acetaminophen 650 mg 10/23/23 14:11 10/23/23 23:49 Acetaminophen 325 Mg Tablet PO 650 mg Q4HR PRN Administration Pain 1 to 4, or Fever Meropenem 1 gm/ Sodium 100 mls @ 200 mls/hr 10/23/23 11:00 10/24/23 03:07 Chloride IV Infused Q8H DARLYN Infusion Sodium Chloride 1,000 mls @ 83.333 mls/hr 10/23/23 16:00 10/24/23 04:39 Normal Saline 0.9% IV 83.333 mls/hr .Q12H DARLYN Administration Pantoprazole Sodium 40 mg 10/23/23 07:00 10/24/23 06:33 Pantoprazole 40 Mg Tablet PO 40 mg QDAC DARLYN Administration Sodium Chloride 10 ml 10/23/23 17:00 10/24/23 00:17 Sodium Chloride Flush 0.9% 10 Ml Syringe IVP Not Given 0100,0900,1700 DARLYN - Lab Result Lab results reviewed: Yes Fish Bone Diagrams: 10/24/23 05:07 10/24/23 05:07 - Additional Planning Condition/Complexity: Improved My Orders: My Active Orders 10/23/23 14:11 Activity Orders [RC] Q2HR IO [RC] IOSHIFT Initiate Bowel Care Protocol [RC] .protocol Initiate Line Care Protocol [RC] QSHIFT Initiate Personal Care Protoco [RC] .protocol Oxygen Therapy [RC] .PRN Vital Signs [RC] 0800,1600,0000 Acetaminophen [Tylenol] 650 mg PO Q4HR PRN HYDROcod/ACETAM 5/325 [[place] 5/325] 1 tab PO Q4HR PRN Ondansetron Inj [Zofran Inj] 4 mg IVP Q6HR PRN Ondansetron Odt [Zofran Odt] 4 mg TL Q6HR PRN Sodium Chloride Flush 0.9% [Normal Saline Flush 0.9%] 10 ml IVP PRN PRN Code Status [OTHERS] Routine Condition of Patient [OTHERS] Routine DVT Prophylaxis [OTHERS] Routine 10/23/23 16:00 Sodium Chloride 0.9% [Normal Saline 0.9%] 1,000 ml IV 83.333 mls/hr 10/23/23 Dinner Regular Diet [DIET] 10/23/23 17:00 Sodium Chloride Flush 0.9% [Normal Saline Flush 0.9%] 10 ml IVP 0100,0900,1700 10/24/23 07:51 Isolation [Infection Precautions] [RC] QSHIFT 10/24/23 09:00 Enoxaparin [Lovenox] 40 mg SUBQ DAILY Potassium Chloride [K-Dur] 20 meq PO BID atenoloL [Tenormin] 50 mg PO DAILY 10/25/23 05:00 BMP - BASIC METABOLIC PANEL [CHEM] DAILYLAB CBC [CBC - COMP BLD CT W/AUTO DIFF] [HEME] DAILYLAB 10/26/23 05:00 BMP - BASIC METABOLIC PANEL [CHEM] DAILYLAB CBC [CBC - COMP BLD CT W/AUTO DIFF] [HEME] DAILYLAB 10/27/23 05:00 BMP - BASIC METABOLIC PANEL [CHEM] DAILYLAB CBC [CBC - COMP BLD CT W/AUTO DIFF] [HEME] DAILYLAB 10/28/23 05:00 BMP - BASIC METABOLIC PANEL [CHEM] DAILYLAB CBC [CBC - COMP BLD CT W/AUTO DIFF] [HEME] DAILYLAB Plan Discussed with:: Patient, Spouse Time Spent: 15-30 minutes Subjective - Subjective Patient Reports: Feeling Better (one episode of chill, no fever, has mild pelvic heavyness) Objective Vital Signs: Vital Signs - 24 hr 10/23/23 10/23/23 10/23/23 08:02 10:04 12:00 Temperature 36.6 C Heart Rate 86 85 81 Heart Rate [ Brachial] Respiratory 25 H 18 Rate Blood Pressure 177/83 H 163/73 H 132/74 H Blood Pressure [Left Brachial artery] Blood Pressure [Right Brachial artery] O2 Saturation 97 93 99 10/23/23 10/23/23 10/23/23 14:00 15:02 16:40 Temperature 37.2 C 37.0 C Heart Rate 84 Heart Rate [ 80 92 Brachial] Respiratory 16 16 20 Rate Blood Pressure 151/69 H Blood Pressure 148/85 H [Left Brachial artery] Blood Pressure 120/71 [Right Brachial artery] O2 Saturation 100 99 97 10/23/23 10/24/23 10/24/23 23:51 00:19 07:37 Temperature 37.9 C 37.2 C 37 C Heart Rate Heart Rate [ 113 H 95 Brachial] Respiratory 18 18 Rate Blood Pressure Blood Pressure [Left Brachial artery] Blood Pressure 152/87 H 162/87 H [Right Brachial artery] O2 Saturation 94 95 Oxygen O2 Source Room air I&O (Last 24 Hrs): Intake and Output Totals x24h 10/22/23 10/23/23 10/24/23 23:59 23:59 23:59 Intake Total 1100 1920 1048.608 Balance 1100 1920 1048.608 General: Alert, Oriented x3 HEENT: PERRLA Neck: No JVD Neuro: Alert Cardiovascular: Regular rate Respiratory: No respiratory distress Abdomen: Soft, No tenderness Extremities: No clubbing, No edema - Results Results: Laboratory Results WBC 7.6 x10^3/uL (4.8-10.8) 10/24/23 05:07 RBC 3.68 10^6/uL (4.20-5.40) L 10/24/23 05:07 Hgb 11.2 g/dL (12.0-16.0) L 10/24/23 05:07 Hct 34.6 % (37.0-47.0) L 10/24/23 05:07 MCV 94.0 fL (81.0-99.0) 10/24/23 05:07 MCH 30.4 pg (27.0-31.0) 10/24/23 05:07 MCHC 32.4 g/dL (32.0-36.0) 10/24/23 05:07 RDW 13.1 % (12.0-15.0) 10/24/23 05:07 Plt Count 158 10^3/uL (130-450) 10/24/23 05:07 MPV 8.7 fL (7.9-10.8) 10/24/23 05:07 Neut # (Auto) 5.6 10^3/uL (1.5-6.6) 10/24/23 05:07 Lymph # (Auto) 1.1 10^3/uL (1.5-3.5) L 10/24/23 05:07 [place] # (Auto) 0.9 10^3/uL (0.0-1.0) 10/24/23 05:07 Eos # (Auto) 0.0 10^3/uL (0.0-0.7) 10/24/23 05:07 Baso # (Auto) 0.0 10^3/uL (0.0-0.1) 10/24/23 05:07 Absolute Nucleated RBC 0.00 x10^3/uL 10/24/23 05:07 Band Neuts % (Manual) Not Reportable 10/22/23 19:57 Abnorm Lymph % (Manual) Not Reportable 10/22/23 19:57 Nucleated RBC % 0.0 /100WBC 10/24/23 05:07 Neutrophils # (Manual) Not Reportable 10/22/23 19:57 Lymphocytes # (Manual) Not Reportable 10/22/23 19:57 Monocytes # (Manual) Not Reportable 10/22/23 19:57 Eosinophils # (Manual) Not Reportable 10/22/23 19:57 Basophils # (Manual) Not Reportable 10/22/23 19:57 Differential Comment MANUAL=AUTO DIFF 10/22/23 19:57 Manual Slide Review Indicated 10/22/23 19:57 Platelet Estimate NORMAL (130-450,000) (NORMAL) 10/22/23 19:57 Platelet Morphology NORMAL APPEARANCE (NORMAL) 10/22/23 19:57 RBC Morph Micro Appear NORMAL APPEARANCE (NORMAL) 10/22/23 19:57 Sodium 139 mmol/L (135-145) 10/24/23 05:07 Potassium 3.4 mmol/L (3.5-4.5) L 10/24/23 05:07 Chloride 109 mmol/L (101-111) 10/24/23 05:07 Carbon Dioxide 23 mmol/L (21-32) 10/24/23 05:07 Anion Gap 7.0 (6-13) 10/24/23 05:07 BUN 9 mg/dL (6-20) 10/24/23 05:07 Creatinine 0.6 mg/dL (0.6-1.3) 10/24/23 05:07 Estimated GFR (MDRD) 105 (>89) 10/24/23 05:07 Glucose 103 mg/dL (74-104) 10/24/23 05:07 Lactic Acid 1.8 mmol/L (0.5-2.2) 10/22/23 19:57 Calcium 8.5 mg/dL (8.5-10.3) 10/24/23 05:07 Total Bilirubin 0.7 mg/dL (0.2-1.0) 10/22/23 19:57 AST 34 IU/L (10-42) 10/22/23 19:57 ALT 49 IU/L (10-60) 10/22/23 19:57 Alkaline Phosphatase 73 IU/L (42-121) 10/22/23 19:57 Total Protein 6.8 g/dL (6.4-8.9) 10/22/23 19:57 Albumin 3.8 g/dL (3.2-5.5) 10/22/23 19:57 Globulin 3.0 g/dL (2.1-4.2) 10/22/23 19:57 Albumin/Globulin Ratio 1.3 (1.0-2.2) 10/22/23 19:57 Lipase 21 U/L (11-82) 10/22/23 19:57 Urine Color DARK YELLOW 10/22/23 19:15 Urine Clarity CLEAR (CLEAR) 10/22/23 19:15 Urine pH 6.0 PH (5.0-7.5) 10/22/23 19:15 Ur Specific [place] 1.025 (1.002-1.030) 10/22/23 19:15 Urine Protein 100 mg/dL (NEGATIVE) H 10/22/23 19:15 Urine Glucose (UA) NEGATIVE mg/dL (NEGATIVE) 10/22/23 19:15 Urine Ketones 15 mg/dL (NEGATIVE) H 10/22/23 19:15 Urine Occult Blood SMALL (NEGATIVE) H 10/22/23 19:15 Urine Nitrite NEGATIVE (NEGATIVE) 10/22/23 19:15 Urine Bilirubin NEGATIVE (NEGATIVE) 10/22/23 19:15 Urine Urobilinogen 0.2 (NORMAL) E.U./dL (NORMAL) 10/22/23 19:15 Ur Leukocyte Esterase NEGATIVE (NEGATIVE) 10/22/23 19:15 Urine RBC 11-25 /HPF (0-5) H 10/22/23 19:15 Urine WBC 11-25 /HPF (0-5) H 10/22/23 19:15 Urine WBC Clumps PRESENT 10/22/23 19:15 Ur Squamous Epith Cells FEW Squamous (<= Few) 10/22/23 19:15 Urine Bacteria Few /HPF (None Seen) 10/22/23 19:15 Ur Microscopic Review INDICATED 10/22/23 19:15 Urine Culture Comments INDICATED 10/22/23 19:15 Sepsis Event Note (H) - Evaluation Current Stage of Sepsis: Resolved Possible source of Sepsis: positive: Genitourinary ABX Reporting Has patient been on IV antibiotics over the past 48 hours?: Yes
[2023-10-24] MEDS: atenoloL 25 MG TABLET PO SCH (09:14)
[2023-10-24] MEDS: POTASSIUM CHLORIDE 20 MEQ TABLET PO SCH (09:14)
[2023-10-24] MEDS: ENOXAPARIN 40 MG/0.4 ML SYRINGE SUBQ SCH (09:15)
[2023-10-24] MEDS ORDERED: SODIUM CHLORIDE 0.9% MINIBAG 100 ML IV ONE (11:15)
[2023-10-24] MEDS ORDERED: hydrALAZINE INJ 20 MG/ML VIAL IVP PRN (11:26)
[2023-10-24] MEDS: amLODIPine 5 MG TABLET PO SCH (11:35)
[2023-10-25 05:43] LABS: BASOPHILS % (AUTO) 0.6 %; EOSINOPHILS # (AUTO) 0.1 10^3/uL (0.0-0.7); EOSINOPHILS % (AUTO) 1.1 %; HCT - HEMATOCRIT 37.3 % (37.0-47.0); HGB - HEMOGLOBIN 11.9 g/dL (12.0-16.0); LYMPHOCYTES # (AUTO) 1.3 10^3/uL (1.5-3.5); LYMPHOCYTES % (AUTO) 24.6 %; MEAN CORPUSCULAR HEMOGLOBIN 29.8 pg (27.0-31.0); MEAN CORPUSCULAR HGB CONC 31.9 g/dL (32.0-36.0); MEAN CORPUSCULAR VOLUME 93.5 fL (81.0-99.0); MEAN PLATELET VOLUME 8.6 fL (7.9-10.8); MONOCYTES # (AUTO) 0.8 10^3/uL (0.0-1.0); NEUTROPHILS # (AUTO) 3.1 10^3/uL (1.5-6.6); NEUTROPHILS % (AUTO) 57.2 %; PLT - PLATELET COUNT 197 10^3/uL (130-450); RED BLOOD COUNT 3.99 10^6/uL (4.20-5.40); RED CELL DISTRIBUTION WIDTH 12.8 % (12.0-15.0); WHITE BLOOD COUNT 5.4 x10^3/uL (4.8-10.8)
[2023-10-25 05:58] LABS: CALCIUM 9.1 mg/dL (8.5-10.3); CREATININE 0.6 mg/dL (0.6-1.3); POTASSIUM 3.6 mmol/L (3.5-4.5)
--- NOTE | 2023-10-25 13:50 | PROVIDER PROGRESS NOTE ---
Subjective - Prog Note Date Prog Note Date: 10/25/23 Prog Note Time: 13:48 - Subjective Subjective: No acute events overnight. She reports feeling improved today and has very little back/flank pain. She also has been eating and drinking well without any nausea. Remains afebrile though she felt a little warm last night. Denies any dysuria or hematuria. Current Medications - Current Medications Current Medications: Current Medications Generic Name Dose Route Start Last Admin Trade Name Freq PRN Reason Stop Dose Admin Acetaminophen 650 mg 10/23/23 14:11 10/23/23 23:49 Acetaminophen 325 Mg Tablet PO 650 mg Q4HR PRN Administration Pain 1 to 4, or Fever Amlodipine Besylate 10 mg 10/24/23 12:00 10/25/23 08:23 Amlodipine 5 Mg Tablet PO 10 mg DAILY DARLYN Administration Atenolol 50 mg 10/24/23 09:00 10/25/23 08:23 Atenolol 25 Mg Tablet PO 50 mg DAILY DARLYN Administration Enoxaparin Sodium 40 mg 10/24/23 09:00 10/25/23 08:24 Enoxaparin 40 Mg/0.4 Ml Syringe SUBQ Not Given DAILY DARLYN Meropenem 1 gm/ Sodium 100 mls @ 200 mls/hr 10/23/23 11:00 10/25/23 11:21 Chloride IV Infused Q8H DARLYN Infusion Sodium Chloride 1,000 mls @ 83.333 mls/hr 10/23/23 16:00 10/25/23 06:57 Normal Saline 0.9% IV 83.333 mls/hr .Q12H DARLYN Administration Pantoprazole Sodium 40 mg 10/23/23 07:00 10/25/23 06:55 Pantoprazole 40 Mg Tablet PO 40 mg QDAC DARLYN Administration Potassium Chloride 20 meq 10/24/23 09:00 10/25/23 08:24 Potassium Chloride 20 Meq Tablet PO 10/26/23 23:59 20 meq BID DARLYN Administration Sodium Chloride 10 ml 10/23/23 17:00 10/25/23 08:25 Sodium Chloride Flush 0.9% 10 Ml Syringe IVP Not Given 0100,0900,1700 DARLYN Objective - Vital Signs/Intake & Output Reviewed Vital Signs: Yes Vital Signs: Vital Signs x48h Temp Pulse Resp BP Pulse Ox 10/25/23 07:57 36.9 C 96 20 143/89 H 96 Intake & Output: Intake & Output 10/22/23 10/23/23 10/24/23 10/25/23 23:59 23:59 23:59 23:59 Intake Total 1100 1920 3668.608 1800 Balance 1100 1920 3668.608 1800 - Objective General Appearance: positive: No acute distress, Alert Eyes Bilateral: positive: Normal inspection, PERRL, EOMI ENT: positive: ENT inspection nml, Pharynx nml, No signs of dehydration Neck: positive: Nml inspection, Thyroid nml, No JVD Respiratory: positive: No respiratory distress, Breath sounds nml. negative: Wheezes, Rales, Rhonchi Cardiovascular: positive: Regular rate & rhythm, No murmur, No gallop Peripheral Pulses: 2+ Dorsalis pedis (R), 2+ Dorsalis pedis (L) Abdomen: positive: Non-tender, No organomegaly, Nml bowel sounds, No distention Back: positive: Nml inspection. negative: CVA tenderness (R), CVA tenderness (L) Skin: positive: Color nml, No rash, Warm, Dry Extremities: positive: Non-tender, Full ROM, Nml appearance, No pedal edema Neurologic/Psychiatric: positive: Oriented x3, CN's nml (2-12), Motor nml (Blood Cultures x 2 with ESBL E. Coli) - Lab Results Fish Bones: 10/25/23 05:30 10/25/23 05:30 Other Labs: Lab Results x24hrs 10/25/23 10/25/23 Range/Units 05:30 05:30 WBC 5.4 (4.8-10.8) x10^3/uL RBC 3.99 L (4.20-5.40) 10^6/uL Hgb 11.9 L (12.0-16.0) g/dL Hct 37.3 (37.0-47.0) % MCV 93.5 (81.0-99.0) fL MCH 29.8 (27.0-31.0) pg MCHC 31.9 L (32.0-36.0) g/dL RDW 12.8 (12.0-15.0) % Plt Count 197 (130-450) 10^3/uL MPV 8.6 (7.9-10.8) fL Neut # (Auto) 3.1 (1.5-6.6) 10^3/uL Lymph # (Auto) 1.3 L (1.5-3.5) 10^3/uL [place] # (Auto) 0.8 (0.0-1.0) 10^3/uL Eos # (Auto) 0.1 (0.0-0.7) 10^3/uL Baso # (Auto) 0.0 (0.0-0.1) 10^3/uL Absolute Nucleated RBC 0.00 x10^3/uL Nucleated RBC % 0.0 /100WBC Sodium 138 (135-145) mmol/L Potassium 3.6 (3.5-4.5) mmol/L Chloride 107 (101-111) mmol/L Carbon Dioxide 23 (21-32) mmol/L Anion Gap 8.0 (6-13) BUN 8 (6-20) mg/dL Creatinine 0.6 (0.6-1.3) mg/dL Estimated GFR (MDRD) 105 (>89) Glucose 155 H (74-104) mg/dL Calcium 9.1 (8.5-10.3) mg/dL ABX Reporting Has patient been on IV antibiotics over the past 48 hours?: Yes Sepsis Event Note (H) - Evaluation Current Stage of Sepsis: Resolved Possible source of Sepsis: positive: Genitourinary Assessment/Plan - Problem List (1) Sepsis Impression: Initially presented with sepsis due to urinary tract infection and pyelonephritis noted on CT scan. -Sepsis has resolved -Continue IV antibiotics as noted below Qualifiers: Sepsis type: Escherichia coli Sepsis acute organ dysfunction status: without acute organ dysfunction Qualified Code(s): A41.51 - Sepsis due to Escherichia coli [E. coli] (2) Bacteremia due to Escherichia coli Impression: Both her admission blood cultures have grown ESBL E. coli. Since admission her infectious symptoms have improved. -Continue IV meropenem -Repeat blood cultures today -If afebrile for greater than 48 hours and repeat blood cultures are negative, can transition to oral ciprofloxacin given the sensitivities noted on E. coli. (3) Pyelonephritis Impression: Noted to have right-sided pyelonephritis on CT imaging with a urinalysis consi stent with UTI. -Urine cultures grew ESBL E. coli -Continue IV meropenem as noted above for her concomitant bacteremia (4) Right ovarian cyst Impression: Noted on her admission CT scan and showing a 7.5 cm complex right adnexal cyst. -Recommend outpatient [facility] follow-up -Check CA-125 (5) HTN (hypertension) Impression: Currently controlled. -Her home atenolol was resumed on admission but was uncontrolled thus amlodipine was added during this hospitalization with adequate control. Qualifiers: Hypertension type: primary hypertension Qualified Code(s): I10 - Essential (primary) hypertension
[2023-10-25] MEDS ORDERED: ZINC OXIDE 12% OINT 57 GM TUBE TOP PRN (16:24)
[2023-10-25] MEDS: BENZOCAINE/MENTHOL LOZENGE MM PRN (18:07)
[2023-10-26 06:04] LABS: BASOPHILS % (AUTO) 0.8 %; EOSINOPHILS % (AUTO) 2.2 %; HCT - HEMATOCRIT 39.8 % (37.0-47.0); LYMPHOCYTES % (AUTO) 27.4 %; MEAN CORPUSCULAR HEMOGLOBIN 30.3 pg (27.0-31.0); MEAN CORPUSCULAR HGB CONC 32.7 g/dL (32.0-36.0); MEAN CORPUSCULAR VOLUME 92.8 fL (81.0-99.0); MEAN PLATELET VOLUME 8.6 fL (7.9-10.8); MONOCYTES % (AUTO) 11.4 %; NEUTROPHILS % (AUTO) 55.3 %; PLT - PLATELET COUNT 236 10^3/uL (130-450); RED BLOOD COUNT 4.29 10^6/uL (4.20-5.40); RED CELL DISTRIBUTION WIDTH 12.6 % (12.0-15.0); WHITE BLOOD COUNT 7.7 x10^3/uL (4.8-10.8)
[2023-10-26 06:16] LABS: ABNORMAL LYMPHS % (MANUAL) 0 %; BAND NEUTROPHILS % (MANUAL) 0 %
[2023-10-26 06:20] LABS: CALCIUM 9.4 mg/dL (8.5-10.3); CREATININE 0.6 mg/dL (0.6-1.3)
[2023-10-26 07:04] LABS: CA 125 10.7 U/mL (0.5-35.0)
[2023-10-26 07:11] LABS: EOSINOPHILS # (MANUAL) 0.3 10^3/uL (0-0.7); LYMPHOCYTES # (MANUAL) 1.7 10^3/uL (1.5-3.5); LYMPHOCYTES % (MANUAL) 17 %; MONOCYTES # (MANUAL) 0.5 10^3/uL (0.0-1.0); NEUTROPHILS # (MANUAL) 5.2 10^3/uL (1.5-6.6); REACTIVE LYMPHS % (MANUAL) 5 %
[2023-10-26 07:12] LABS: DIFFERENTIAL COMMENT MANUAL DIFFERENTIAL; PLATELET ESTIMATE, MANUAL NORMAL (130-450,000) (NORMAL); PLATELET MORPHOLOGY NORMAL APPEARANCE (NORMAL); RBC MORPHOLOGY (MULTIPLE) NORMAL APPEARANCE (NORMAL)
--- NOTE | 2023-10-26 13:08 | Discharge Plan ---
Discharge Plan Problem Reviewed?: Yes Disposition: Home, Self Care Condition: Good Prescriptions: Ciprofloxacin HCl 1 tablet PO BID 5 Days #10 tablet amLODIPine [Norvasc] 10 mg PO DAILY 30 Days #60 tab Diet: Regular Activity Restrictions: No Restrictions Shower Restrictions: No Driving Restrictions: No Weight Bearing: Full Weight Health Concerns: You were hospitalized after presenting with fevers, chills, urinary discomfort and flank pain. You are found to have evidence of what is called pyelonephritis, which is a bacterial infection of your right kidney. This is a more severe form of a urinary tract infection, which is why we typically admit patients with this condition to receive IV antibiotics. You are initially placed on IV ceftriaxone, however your culture results indicated that you had what is called ESBL E. coli. This is a form of E. coli bacteria that is resistant to multiple antibiotics, thus you were placed on IV meropenem which treats the ESBL E. coli well. The cultures of your urine as well as both sets of your initial blood cultures returned positive for the ESBL E. coli, which indicates that it was a more severe infection. However after switching to IV meropenem your symptoms improved significantly and your lab results normalized. Repeat blood cultures showed that you no longer had ESBL E. coli in your blood. Given the improvement in your symptoms as well as your labs, you are safe for discharge home to complete your antibiotic therapy with oral ciprofloxacin as noted below. Plan of Treatment: Please be sure to contact your primary care provider and schedule a 1 week posthospitalization follow-up visit to ensure that you are improving approp riately. You are given a prescription for ciprofloxacin 500 mg twice a day, which you can start this evening. This prescription is for a total of 5 days and this is an antibiotic to complete the therapy for your infection. You were also prescribed amlodipine 10 mg due to your blood pressure being elevated while hospitalized. This can be taken once daily in the morning. Additional Instructions or Follow Up instructions: While taking ciprofloxacin, please avoid significant physical exercise or heavy lifting as ciprofloxacin can make your tendons sore and weak. It is a very rare side effect but if you notice that you are developing pain around your tendons and muscles then you should seek medical evaluation from your primary care provider and avoid strenuous activity. Please return to the hospital or seek medical attention if you develop recurrent fevers, chills, severe nausea/vomiting/diarrhea, abdominal pain, flank pain or recurrent UTI symptoms. No Smoking: If you smoke, Please STOP! Call for help.
--- NOTE | 2023-10-26 13:20 | DISCHARGE SUMMARY ---
"Discharge Summary Admit Date: 10/23/23 Discharge Date: 10/26/23 Discharging Provider: Dr. Shakir Moreno MD Code Status: Attempt Resuscitation Condition at Discharge: Good Discharge Disposition: 01 Home, Self Care - DIAGNOSES Admission Diagnoses: Acute Pyelonephritis Discharge Diagnoses with Status of Each Condition: (1) Acute Pyelonephritis - improved (2) ESBL E. Coli Bacteremia - resolved (3) ESBL Urinary Tract Infection - resolved (4) Sepsis - resolved (5) Right Ovarian Cyst - stable - HPI History of Present Illness: This is a 52-year-old female who is generally healthy and presented to the ED with chief complaint of ongoing fever, chill and urinary discomfort. She had previously come to the emergency department on 10/21/2023 with a fever and reported heaviness with urination. Labs were reassuring but urine suggested infection and she was given a dose of IV ceftriaxone. She was feeling better after Toradol and IV fluids with a benign abdominal exam so imaging was deferred. She was prescribed on oral cefdinir and had been using acetaminophen every 6 hours as needed, using 1000 mg tablets. Despite this she continued to have fevers and ongoing discomfort in the left flank. She denies having any cough or congestion. No vomiting but does have some nausea and poor appetite. In the emergency department, she had a fever to 38.6 Celsius along with a heart rate of 120, respiratory rate 20 and blood pressure 150/83. Labs were significant for a white blood cell count of 2.5, and platelets 146 as well as a urinalysis showing negative nitrite and negative leuk esterase. A CT scan of he r abdomen showed the right kidney had scattered areas of hypodensity, concerning for pyelonephritis. She also had a large right ovarian cyst at 8.4 cm. Her urine culture from the was positive for ESBL E. coli and the initial blood cultures on 10/21 were also positive for ESBL E. coli. She was placed on IV meropenem and admitted for further care. - CONSULTS | PROCEDURES Consultations: None - HOSPITAL COURSE Hospital Course: After admission and several doses of IV meropenem her symptoms started to improve. She remained afebrile aside from her initial fever while in the emergency department on 10/21. Her white blood cell count improved to normal values and her ongoing flank pain, nausea, poor appetite resolved. Repeat blood cultures obtained on 10/24 were no growth for 24 hours, and given that she was af ebrile for greater than 48 hours while on IV meropenem along with resolution of her symptoms, it was felt that she would be able to transition to oral ciprofloxacin, which her ESBL E. coli was sensitive to. She was discharged in stable condition home with a prescription for 500 mg twice daily ciprofloxacin to take for an additional 5 days of therapy. Of note she was hypertensive while hospitalized and her home atenolol 50 mg was continued though she did remain hypertensive and 10 mg of amlodipine daily was added. In regards to a right ovarian mass that was noticed on CT of her abdomen, She underwent pelvic and transvaginal ultrasound which revealed the ovarian cyst was 7.4 cm and anechoic in nature without any internal vascularity. She was advised to follow-up as an outpatient with her DELIVERY MANAGER to have this further evaluated given its concerning findings. - ALLERGIES Allergies/Adverse Reactions: Allergies Allergy/AdvReac Type Severity Reaction Status Date / Time lisinopril Allergy Respiratory Verified 10/22/23 18:55 - MEDICATIONS Home Medications: Ambulatory Orders Medication Instructions Recorded Confirmed atenoloL [Atenolol] 50 mg PO DAILY 11/25/13 10/22/23 Ciprofloxacin HCl 1 tablet PO BID 5 Days #10 tablet 10/26/23 amLODIPine [Norvasc] 10 mg PO DAILY 30 Days #60 tab 10/26/23 - PHYSICAL EXAM AT DISCHARGE General Appearance: positive: No acute distress, Alert Eyes Bilateral: positive: Normal inspection, PERRL, EOMI ENT: positive: ENT inspection nml, Pharynx nml, No signs of dehydration Neck: positive: Nml inspection, Thyroid nml, No JVD, Trachea midline Respiratory: positive: No respiratory distress, Breath sounds nml. negative: Wheezes, Rales, Rhonchi Cardiovascular: positive: Regular rate & rhythm, No murmur, No gallop Peripheral Pulses: positive: 2+ Abdomen: positive: Non-tender, No organomegaly, Nml bowel sounds, No distention Back: positive: Nml inspection. negative: CVA tenderness (R), CVA tenderness (L) Skin: positive: Color nml, No rash, Warm Extremities: positive: Nml appearance, No pedal edema Neurologic/Psychiatric: positive: Oriented x3, CN's nml (2-12), Motor nml - LABS Result Diagrams: 10/26/23 05:52 10/26/23 05:52 Other Lab Results: Laboratory Tests 10/22/23 10/22/23 10/22/23 19:15 19:57 19:57 WBC 2.5 L RBC 4.39 Hgb 13.2 Hct 41.0 MCV 93.4 MCH 30.1 MCHC 32.2 RDW 12.7 Plt Count 146 MPV 8.8 Neut # (Auto) 2.3 Lymph # (Auto) 0.2 L [place] # (Auto) 0.0 Eos # (Auto) 0.0 Baso # (Auto) 0.0 Absolute Nucleated RBC 0.00 Total Counted Band Neuts % (Manual) Not Reportable Reactive Lymphs % (Man) Abnorm Lymph % (Manual) Not Reportable Nucleated RBC % 0.0 Neutrophils # (Manual) Not Reportable Lymphocytes # (Manual) Not Reportable Monocytes # (Manual) Not Reportable Eosinophils # (Manual) Not Reportable Basophils # (Manual) Not Reportable Differential Comment MANUAL=AUTO DIFF Manual Slide Review Indicated Platelet Estimate NORMAL (130-450,000) Platelet Morphology NORMAL APPEARANCE RBC Morph Micro Appear NORMAL APPEARANCE Sodium 136 Potassium 3.4 L Chloride 106 Carbon Dioxide 22 Anion Gap 8.0 BUN 13 Creatinine 0.7 Estimated GFR (MDRD) 88 L Glucose 179 H Lactic Acid Calcium 9.5 Total Bilirubin 0.7 AST 34 ALT 49 Alkaline Phosphatase 73 Total Protein 6.8 Albumin 3.8 Globulin 3.0 Albumin/Globulin Ratio 1.3 Lipase 21 CA 125 Antigen Urine Color DARK YELLOW Urine Clarity CLEAR Urine pH 6.0 Ur Specific [place] 1.025 Urine Protein 100 H Urine Glucose (UA) NEGATIVE Urine Ketones 15 H Urine Occult Blood SMALL H Urine Nitrite NEGATIVE Urine Bilirubin NEGATIVE Urine Urobilinogen 0.2 (NORMAL) Ur Leukocyte Esterase NEGATIVE Urine RBC 11-25 H Urine WBC 11-25 H Urine WBC Clumps PRESENT Ur Squamous Epith Cells FEW Squamous Urine Bacteria Few Ur Microscopic Review INDICATED Urine Culture Comments INDICATED 10/22/23 10/23/23 10/23/23 19:57 05:19 05:19 WBC 10.6 RBC 4.06 L Hgb 12.5 Hct 38.2 MCV 94.1 MCH 30.8 MCHC 32.7 RDW 13.1 Plt Count 147 MPV 9.1 Neut # (Auto) 9.3 H Lymph # (Auto) 0.7 L [place] # (Auto) 0.6 Eos # (Auto) 0.0 Baso # (Auto) 0.0 Absolute Nucleated RBC 0.00 Total Counted Band Neuts % (Manual) Reactive Lymphs % (Man) Abnorm Lymph % (Manual) Nucleated RBC % 0.0 Neutrophils # (Manual) Lymphocytes # (Manual) Monocytes # (Manual) Eosinophils # (Manual) Basophils # (Manual) Differential Comment Manual Slide Review Platelet Estimate Platelet Morphology RBC Morph Micro Appear Sodium 139 Potassium 4.1 Chloride 108 Carbon Dioxide 23 Anion Gap 8.0 BUN 11 Creatinine 0.7 Estimated GFR (MDRD) 88 L Glucose 133 H Lactic Acid 1.8 Calcium 8.9 Total Bilirubin AST ALT Alkaline Phosphatase Total Protein Albumin Globulin Albumin/Globulin Ratio Lipase CA 125 Antigen Urine Color Urine Clarity Urine pH Ur Specific [place] Urine Protein Urine Glucose (UA) Urine Ketones Urine Occult Blood Urine Nitrite Urine Bilirubin Urine Urobilinogen Ur Leukocyte Esterase Urine RBC Urine WBC Urine WBC Clumps Ur Squamous Epith Cells Urine Bacteria Ur Microscopic Review Urine Culture Comments 10/24/23 10/24/23 10/25/23 05:07 05:07 05:30 WBC 7.6 5.4 RBC 3.68 L 3.99 L Hgb 11.2 L 11.9 L Hct 34.6 L 37.3 MCV 94.0 93.5 MCH 30.4 29.8 MCHC 32.4 31.9 L RDW 13.1 12.8 Plt Count 158 197 MPV 8.7 8.6 Neut # (Auto) 5.6 3.1 Lymph # (Auto) 1.1 L 1.3 L [place] # (Auto) 0.9 0.8 Eos # (Auto) 0.0 0.1 Baso # (Auto) 0.0 0.0 Absolute Nucleated RBC 0.00 0.00 Total Counted Band Neuts % (Manual) Reactive Lymphs % (Man) Abnorm Lymph % (Manual) Nucleated RBC % 0.0 0.0 Neutrophils # (Manual) Lymphocytes # (Manual) Monocytes # (Manual) Eosinophils # (Manual) Basophils # (Manual) Differential Comment Manual Slide Review Platelet Estimate Platelet Morphology RBC Morph Micro Appear Sodium 139 Potassium 3.4 L Chloride 109 Carbon Dioxide 23 Anion Gap 7.0 BUN 9 Creatinine 0.6 Estimated GFR (MDRD) 105 Glucose 103 Lactic Acid Calcium 8.5 Total Bilirubin AST ALT Alkaline Phosphatase Total Protein Albumin Globulin Albumin/Globulin Ratio Lipase CA 125 Antigen Urine Color Urine Clarity Urine pH Ur Specific [place] Urine Protein Urine Glucose (UA) Urine Ketones Urine Occult Blood Urine Nitrite Urine Bilirubin Urine Urobilinogen Ur Leukocyte Esterase Urine RBC Urine WBC Urine WBC Clumps Ur Squamous Epith Cells Urine Bacteria Ur Microscopic Review Urine Culture Comments 10/25/23 10/26/23 10/26/23 05:30 05:52 05:52 WBC 7.7 RBC 4.29 Hgb 13.0 Hct 39.8 MCV 92.8 MCH 30.3 MCHC 32.7 RDW 12.6 Plt Count 236 MPV 8.6 Neut # (Auto) DIGITAL ARTIST Lymph # (Auto) DIGITAL ARTIST [place] # (Auto) DIGITAL ARTIST Eos # (Auto) DIGITAL ARTIST Baso # (Auto) DIGITAL ARTIST Absolute Nucleated RBC DIGITAL ARTIST Total Counted 100 Band Neuts % (Manual) 0 Reactive Lymphs % (Man) 5 Abnorm Lymph % (Manual) 0 Nucleated RBC % DIGITAL ARTIST Neutrophils # (Manual) 5.2 Lymphocytes # (Manual) 1.7 Monocytes # (Manual) 0.5 Eosinophils # (Manual) 0.3 Basophils # (Manual) 0.0 Differential Comment MANUAL DIFFERENTIAL Manual Slide Review Platelet Estimate NORMAL (130-450,000) Platelet Morphology NORMAL APPEARANCE RBC Morph Micro Appear NORMAL APPEARANCE Sodium 138 138 Potassium 3.6 4.0 Chloride 107 104 Carbon Dioxide 23 25 Anion Gap 8.0 9.0 BUN 8 10 Creatinine 0.6 0.6 Estimated GFR (MDRD) 105 105 Glucose 155 H 95 Lactic Acid Calcium 9.1 9.4 Total Bilirubin AST ALT Alkaline Phosphatase Total Protein Albumin Globulin Albumin/Globulin Ratio Lipase CA 125 Antigen 10.7 Urine Color Urine Clarity Urine pH Ur Specific [place] Urine Protein Urine Glucose (UA) Urine Ketones Urine Occult Blood Urine Nitrite Urine Bilirubin Urine Urobilinogen Ur Leukocyte Esterase Urine RBC Urine WBC Urine WBC Clumps Ur Squamous Epith Cells Urine Bacteria Ur Microscopic Review Urine Culture Comments Microbiology 10/25/23 09:27 Blood - Left Hand Blood Culture - Preliminary NO GROWTH AFTER 1 DAY 10/25/23 09:20 Blood - Right Arm Blood Culture - Preliminary NO GROWTH AFTER 1 DAY 10/22/23 19:57 Blood Blood Culture - Final ESBL-producing E COLI 10/22/23 19:57 Blood Blood Culture - Final ESBL-producing E COLI 10/22/23 19:57 Blood Blood Culture (PCR) - Final 10/21/23 10:42 Urine,Clean Catch Urine Culture - Final ESBL-producing E COLI 10/22/23 19:15 Urine,Random Urine Culture - Final No growth - DIAGNOSTIC IMAGING Diagnostic Imaging Results: Final report reviewed Diagnostic Imaging Results Comments: (1) CT Abdomen/Pelvis: -Scattered areas of hypodensity in the right kidney. Right perinephric stranding. Findings concerning for pyelonephritis. -No hydronephrosis. -Large right ovarian cyst measuring 8.4 cm. Recommend further evaluation with pelvic ultrasound or MRI. Recommend gynecologic consultation. (2) Pelvic and Transvaginal Ultrasound: -Large right anechoic ovarian cyst with internal debris measuring 7.4 cm. No internal vascularity. Gynecologic consultation is recommended given its large size. Pelvic MRI may be helpful for further evaluation. -Multiple uterine fibroids. - SEPSIS Current Stage of Sepsis: Resolved Possible source of Sepsis: Genitourinary - TIME SPENT Time Spent in Discharge (Minutes): 25"
[2023-10-26 13:54] VITALS: BP 121/71; O2SAT 98
== END 2023-10-26 14:02 | disposition home or self-care (01) | DRG 872 ==
LOC: EDUNIT# → ED 18:51 → MS2 10-23 14:11
PROVIDERS: ADMIT Internal Medicine; ATTEND Hospitalist
DX: A41.51 Sepsis due to Escherichia coli [E. coli] (principal); N10 Acute pyelonephritis; N83.201 Unspecified ovarian cyst, right side; I10 Essential (primary) hypertension; D72.819 Decreased white blood cell count, unspecified; Z79.899 Other long term (current) drug therapy
CPT/HCPCS: 36415; 74177; 76830; 76856; 80048; 80053; 81001; 83605; 83690; 85025; 86304; 87040; 87086; 87154; 87181; 93975; 96365; 96375; 99284; 99285; A9270; J2185; Q9967; 81003